=== PATIENT | male | born 1995 | race African-American/Black ===

== ENCOUNTER 2016-09-24 01:00 | Emergency (ER) | payer MEDICAID, OTHER ==
[~2016-09-24] VITALS: Ht 180.3 cm; Wt 74.0 kg
[2016-09-24] MEDS ORDERED: FLUORESCEIN SODIUM 1MG/STRIP OP NR (04:45)
[2016-09-24] MEDS ORDERED: TETRACAINE 0.5% OPHTH DROPS 4ML OP NR (04:45)
[2016-09-24] MEDS ORDERED: BALANCED SALT IRRIG SOLN 15ML IO NR (04:45)
[2016-09-24] MEDS ORDERED: TETRACAINE 0.5% OPHTH DROPS 4ML RIGHTEYE ONE (06:15)
[2016-09-24] MEDS ORDERED: FLUORESCEIN SODIUM 1MG/STRIP OP ONE (07:30)
[2016-09-24 10:24] VITALS: BP 136/80
== END 2016-09-24 10:49 | disposition short-term general hospital (02) ==
LOC: ER 01:01
DX: S05.91XA Unspecified injury of right eye and orbit, initial encounter (principal); F17.210 Nicotine dependence, cigarettes, uncomplicated; F12.10 Cannabis abuse, uncomplicated; W22.8XXA Striking against or struck by other objects, initial encounter; Y93.89 Activity, other specified; Y92.488 Other paved roadways as the place of occurrence of the external cause
CPT/HCPCS: 99285; Z7610

== ENCOUNTER 2023-01-09 03:03 | Emergency (ER) | payer MEDICAID, OTHER ==
[~2023-01-09] VITALS: Ht 177.8 cm; Wt 71.5 kg
[2023-01-09 03:12] VITALS: TEMP 97.5; O2SAT 97
[2023-01-09 04:14] LABS: BASOPHILS % 0.6 % (0.0-2.0); EOSINOPHILS % 1.2 % (0.0-5.0); HEMATOCRIT. 41.7 % (42.0-52.0); HEMOGLOBIN. 14.3 g/dL (14.0-18.0); LYMPHOCYTES % 14.4 % (20.0-50.0); MEAN CORPUSCULAR HEMOGLOBIN 30.7 pg (28.0-32.0); MEAN CORPUSCULAR HGB CONC 34.2 g/dL (31.0-37.0); MEAN CORPUSCULAR VOLUME 89.6 fL (80.0-94.0); MEAN PLATELET VOLUME 7.5 fl (7.4-10.4); MONOCYTES % 10.2 % (2.0-8.0); NEUTROPHILS % 73.6 % (40.0-76.0); PLATELET 237 x1000/uL (130-400); RED BLOOD CELL COUNT 4.65 mill/uL (4.7-6.1); RED CELL DISTRIBUTION WIDTH 12.8 % (11.6-14.6); WHITE BLOOD COUNT 12.8 x1000/uL (4.5-11.0)
[2023-01-09 04:21] LABS: CHLORIDE 108 mEq/L (98-107); INDEX HEMOLYSI 1 (1-3); INDEX ICTERIC 1 (1-4); INDEX LIPEMIC 1 (1-3); POTASSIUM 3.8 mEq/L (3.5-5.1); SODIUM 140 mEq/L (136-145)
[2023-01-09 04:22] LABS: CLARITY URINE CLEAR (CLEAR); COLOR URINE YELLOW (YELLOW); GLUCOSE URINE NEGATIVE (NEGATIVE); KETONES URINE NEGATIVE (NEGATIVE); LEUKOCYTE ESTERASE URINE NEGATIVE (NEGATIVE); NITRITE URINE NEGATIVE (NEGATIVE); OCCULT BLOOD URINE NEGATIVE (NEGATIVE); PH URINE 5.5 (4.5-8.0); PROTEIN URINE NEGATIVE (NEGATIVE); SPECIFIC GRAVITY URINE 1.016 (1.005-1.030)
[2023-01-09 04:28] LABS: ALANINE AMINOTRANSFERASE 18 IU/L (13-61); ALBUMIN 3.6 g/dL (3.4-5.0); ASPARTATE AMINOTRANSFERASE 9 IU/L (15-37); BILIRUBIN TOTAL 0.4 mg/dL (0.1-1.0); CALCIUM 8.5 mg/dL (8.5-10.1); CARBON DIOXIDE 30 mEq/L (21-32); GLUCOSE 104 mg/dL (70-105); PROTEIN TOTAL 7.3 g/dL (6.0-8.3); UREA NITROGEN BLOOD 13 mg/dL (7-21)
[2023-01-09 05:11] LABS: PROTHROMBIN TIME 10.9 sec (9.6-11.0)
[2023-01-09] MEDS ORDERED: LIDOCAINE HCL/PF 1% 10 MG/ML 5ML VIAL INFIL ONE (05:30)
[2023-01-09] MEDS ORDERED: CEPH500T MT (05:45)
[2023-01-09] MEDS ORDERED: KETOROLAC 30MG/ML VIAL IM ONE (05:45)
[2023-01-09] MEDS ORDERED: SULF1TAB48 MT (05:45)
[2023-01-09] MEDS ORDERED: IBUP-2030 MT (05:45)
[2023-01-09 06:02] VITALS: BP 122/80; PULSE 101; RESP 13
== END 2023-01-09 06:20 | disposition home or self-care (01) ==
LOC: ER 03:21
DX: L02.31 Cutaneous abscess of buttock (principal)
CPT/HCPCS: 80053; 81003; 83690; 85025; 85610; 36415; 10060; 96372; 99285; J1885; J3490; Z7610 ×3